=== PATIENT | female | born 2005 ===

== ENCOUNTER 2025-03-08 03:23 | Inpatient (IN) | payer MEDICAID ==
[2025-03-08] MEDS ORDERED: hydrALAZINE 20 MG/ML VIAL SLOW IVP PRN ×3 (04:07→18:03)
[2025-03-08 04:46] LABS: Fetal Membranes Rupture RUPTURE DETECTED (No Rupture)
[2025-03-08] MEDS ORDERED: Oxytocin 30 units/NS 500 ML 500 ML IV SCH ×3 (06:00→18:15)
[2025-03-08] MEDS ORDERED: Methylergonovine 0.2 MG/ML VIAL IM PRN ×2 (06:00→18:03)
[2025-03-08] MEDS ORDERED: Lidocaine 1% (PF) 30 ML VIAL SC PRN (06:00)
[2025-03-08] MEDS ORDERED: Tranexamic Acid 1,000 MG/10 ML VIAL IVP PRN (06:00)
[2025-03-08] MEDS ORDERED: Carboprost 250 MCG/ML AMP IM PRN (06:00)
[2025-03-08] MEDS ORDERED: Diphenoxylate HCl/Atropine Tablet PO PRN (06:00)
[2025-03-08] MEDS ORDERED: Penicillin G Potassium 5 MILL.UNITS in Sodium Chloride 0.9% 100 ML IVPB SCH (06:00)
[2025-03-08 06:05] VITALS: BMI 25.0
[2025-03-08] MEDS: Penicillin G Potassium 5 MILL.UNITS VIAL ONE (06:07)
[2025-03-08 06:44] LABS: Hematocrit 44.6 % (34.9-44.5); Hemoglobin 15.0 g/dL (12.0-15.5); Mean Corpuscular Hemoglobin 30.3 pg (27.0-33.0); Mean Corpuscular Volume 90.1 fL (81.6-98.3); Platelet Count 289 10x3/uL (150-450); Red Blood Cell (RBC) Count 4.95 10x6/uL (3.90-5.03); White Blood Cell (WBC) Count 14.28 10x3/uL (3.5-10.5)
[2025-03-08 06:57] LABS: Syphilis Antibody Index 0.07 S/CO (<1.00 Non-Reactive)
[2025-03-08 06:58] LABS: Hep B Surf Ag - L&D Non-Reactive S/CO (NonReactive)
[2025-03-08] MEDS: Ondansetron PF 4 MG/2 ML Vial IVP PRN (09:36)
[2025-03-08] MEDS: Penicillin G 2.5 MILL.units 2.5 MILL.UNITS in Premix 1 BAG IVPB SCH (10:20)
[2025-03-08 15:30] LABS: Analyzer IN Cardio CS NICU; Critical Notified By: clumpkins rt; pH (Cord, venous) 7.289 (7.250-7.350)
[2025-03-08] MEDS: Ibuprofen 800 MG TAB PO PRN (17:10)
[2025-03-08] MEDS: Acetaminophen 500 MG TAB PO PRN (17:19)
[2025-03-08] MEDS ORDERED: Ondansetron PF 4 MG/2 ML Vial IVP PRN (18:03)
[2025-03-08] MEDS ORDERED: diphenhydrAMINE 25 MG CAP PO PRN (18:03)
[2025-03-08] MEDS ORDERED: Boostrix 0.5 ML (Tdap) VIAL (>/=7 yrs of age) IM ONE (18:03)
[2025-03-08] MEDS ORDERED: Lanolin Ointment 7 GM TUBE TOP PRN (18:03)
[2025-03-08] MEDS ORDERED: Bisacodyl 10 MG SUPP PR PRN (18:03)
[2025-03-08] MEDS: Benzocaine-Menthol 82.5 ML CAN TOP PRN (19:24)
[2025-03-08] MEDS: HYDROcodone/Acetaminophen 5/325 mg Tablet PO PRN (19:24)
[2025-03-08] MEDS: Lidocaine 1% (PF) 30 ML VIAL ONE (20:40)
[2025-03-08] MEDS: Ibuprofen 800 MG TAB PO SCH (21:17)
[2025-03-09] MEDS: Ferrous Sulfate 325 MG TAB PO SCH (08:21)
[2025-03-09] MEDS: Milk Of Magnesia 30 ML UDCUP PO PRN (12:10)
[2025-03-10 08:46] VITALS: BP 113/68; TEMP 98
[2025-03-10] MEDS: Acetaminophen 325 MG TAB PO PRN (11:32)
== END 2025-03-10 18:00 | disposition home or self-care (01) | DRG 768 ==
LOC: CSHLD/OP 03:23 → CSHLD 06:15 → CSHPED 20:27
PROVIDERS: ADMIT Family Medicine; ATTEND Family Medicine
PROC: 10D07Z6 Extraction of Products of Conception, Vacuum, Via Natural or Artificial Opening (ICD-10-PCS; principal; 2025-03-08)
PROC: 0DQR0ZZ Repair Anal Sphincter, Open Approach (ICD-10-PCS; 2025-03-08)
PROC: 0KQM0ZZ Repair Perineum Muscle, Open Approach (ICD-10-PCS; 2025-03-08)
DX: O42.92 Full-term premature rupture of membranes, unspecified as to length of time between rupture and onset of labor (principal); Z37.0 Single live birth; O70.21 Third degree perineal laceration during delivery, IIIa; O48.0 Post-term pregnancy; O99.824 Streptococcus B carrier state complicating childbirth; O66.0 Obstructed labor due to shoulder dystocia; Z3A.40 40 weeks gestation of pregnancy
CPT/HCPCS: 36415; 82805; 84112; 85027; 86780; 86850; 86900; 86901; 87340; 99285; J2405; J2540; J3010